=== PATIENT | female | born 1965 | race Hispanic/Latino ===

== ENCOUNTER 2021-09-11 17:43 | Emergency (ER) | payer BC ==
[~2021-09-11] VITALS: Ht 152.4 cm; Wt 55.8 kg
[~2021-09-11 17:43] MED LIST: ESTRADIOL1 MG; Z.0.AMBIEN CR12.5 MG
== END 2021-09-11 18:08 | disposition home or self-care (01) ==
LOC: ER 17:50
DX: S39.011A Strain of muscle, fascia and tendon of abdomen, initial encounter (principal); X58.XXXA Exposure to other specified factors, initial encounter; Y93.02 Activity, running; Z90.710 Acquired absence of both cervix and uterus; Z98.1 Arthrodesis status; Z79.890 Hormone replacement therapy; Z79.899 Other long term (current) drug therapy
CPT/HCPCS: 99282